=== PATIENT | female | born 1975 | race African-American/Black ===

== ENCOUNTER → 2017-01-16 | Day surgery (SDC) | payer OTHER ==
[~2017-01-16] MED LIST: Acetaminophen 500 MG TAB PO SCH; Iron Sucrose Complex 500 MG in Sodium Chloride 0.9% 250 ML 250 ML IVPB SCH
--- NOTE | 2017-01-16 19:25 | PDOC.LDHP ---
Labor and Delivery H&P Chief complaint: other (iron infusion) HPI: 41 y/o at 35w1d, patient of Dr. Bowens here for scheduled iron infusion. Denies VB, LOF, ctx, or other concerns. +FM ROS neg for HEENT, cv, pulm, gi, gu, neuro, psych, skin, musculoskeltal or constitutional symptoms other than mentioned above. OB History Details: 1 prior LTCS with 4 prior SVDs Current complications: other (anemia) Current medications: pre- vitamins Previous surgical history: low tranverse CS Allergies/Adverse Reactions: Allergies Allergy/AdvReac Type Severity Reaction Status Date / Time No Known Allergies Allergy Verified 11/29/12 11:04 Social history: none - Physical Exam Vital signs reviewed and normal: yes General: NAD, resting Lungs: nonlabored breathing Abdomen: gravid FHT: category 1 (120s, mod variability, + accels, no decels) [place] contractions every: none - Assessment 41 y/o at 35w1d now s/p for iron infusion for anemia. Procedure tolerated well. status reassuring with reactive NST. - Plan -: D/c home with precautions. Advised to keep appointments as scheduled.
== END ==
LOC: L&D/OP 14:21
PROVIDERS: ATTEND Obstetrics & Gynecology
DX: O99.013 Anemia complicating pregnancy, third trimester (principal); Z79.899 Other long term (current) drug therapy; Z3A.35 35 weeks gestation of pregnancy
CPT/HCPCS: J1756; J7050

== ENCOUNTER 2017-02-07 17:12 | Day surgery (SDC) | payer OTHER ==
[2017-02-07 17:50] VITALS: BMI 44.5
--- NOTE | 2017-02-07 23:30 | PRG ---
DATE OF SERVICE: 02/07/2017 TIME OF SERVICE: 1850 hours. PRESENTING COMPLAINT: The patient reports just concerned that she might be in labor, feels funny, a nd she slept through her appointment with Dr. Bowens last week. HISTORY OF PRESENT ILLNESS: Ms. Portillo is a 41-year-old 6, para 5 with an ANA LUISA of 02/19/ 7, placing her at 38-39 weeks' gestation. She has had 4 previous C-sections and a stat wi th her last for non-reassuring heart rate tracing in an with pulmonary hypert ension. She reports that she has been having some cramping off and on. No vaginal bleeding, no rup ture of membranes, no leaking of fluid. She slept through her appointment with Dr. Bowens this week , has an appointment on 02/10/2017 and just wanted to check her baby out and make sure she was not i n labor. OB AND IMPOSER HISTORY: As noted. O positive. Group B strep negative. Advanced maternal age. ASCUS Pap. Positive Trichomonas. PAST MEDICAL HISTORY: The patient has anemia, iron deficiency, received IV iron during this pregnan cy. PAST SURGICAL HISTORY: . ALLERGIES: None. MEDICATIONS: vitamins and IV iron. SOCIAL HISTORY: Denies tobacco, alcohol, or drug use. FAMILY HISTORY: Noncontributory. REVIEW OF SYSTEMS: Noncontributory. PHYSICAL EXAMINATION: GENERAL: Obese black female in no acute distress. VITAL SIGNS: Blood pressure 127/72, temperature 98.6, respirations 18. HEENT: Within normal limits. LUNGS: Clear to auscultation bilaterally. HEART: Regular rhythm. ABDOMEN: Soft and nontender. Fundal height 38 cm. FHTs 120s to 130s. Vulva is without lesions. Vagina without discharge. Cervix, anterior, soft, 250-2, ballots with ease, cephalic. EXTREMITIES: Without clubbing, cyanosis, or edema. heart rate monitoring was carried out for greater than 30 minutes, which revealed a baseline of 120s to 130s, positive accelerations, no dece lerations, no contractions noted. IMPRESSION: Normal third-trimester , no evidence of labor. The patient with advanced mate rnal age, grand multiparity, and prior section x1 for a trial of labor after . PLAN: The patient was reassured. She will be discharged home. She is going to keep her scheduled followup with Dr. Bowens on 02/10 with ER precautions for return for rupture of membranes, active la bor, decreased movement.
== END 2017-02-07 19:05 | disposition home or self-care (01) ==
LOC: L&D/OP 17:12
PROVIDERS: ATTEND Obstetrics & Gynecology
DX: O09.513 Supervision of elderly primigravida, third trimester (principal); O99.013 Anemia complicating pregnancy, third trimester; D50.9 Iron deficiency anemia, unspecified; O99.213 Obesity complicating pregnancy, third trimester; Z3A.39 39 weeks gestation of pregnancy; Z98.890 Other specified postprocedural states

== ENCOUNTER 2017-02-15 10:28 | Inpatient (IN) | payer OTHER ==
[2017-02-15] MEDS ORDERED: LR / Pitocin 40 units/1000 ml 1,000 ML ONE (10:48)
[2017-02-15] MEDS ORDERED: Lidocaine 1% (PF) 30 ML VIAL ONE (10:49)
[2017-02-15] MEDS ORDERED: Ondansetron HCl/PF 4 MG/2 ML Vial IVP PRN ×3 (10:58→20:56)
[2017-02-15] MEDS ORDERED: Ibuprofen 800 MG TAB PO PRN (10:58)
[2017-02-15] MEDS ORDERED: LR / Pitocin 40 units/1000 ml 1,000 ML IV PRN (10:58)
[2017-02-15] MEDS ORDERED: Lidocaine 1% (PF) 30 ML VIAL SC PRN (10:58)
[2017-02-15] MEDS ORDERED: HYDROcodone/Acetaminophen 5/325 mg Tablet PO PRN ×3 (10:58→20:56)
[2017-02-15] MEDS ORDERED: Methylergonovine 0.2 MG/ML VIAL IM PRN (10:58)
[2017-02-15] MEDS ORDERED: Lactated Ringer's 1,000 ML IV SCH (11:00)
[2017-02-15] MEDS ORDERED: Lidocaine 2% MPF 10 ML AMP (For Epidural Use) ONE (11:11)
[2017-02-15 11:30] LABS: Hematocrit 33.3 % (36.0-47.0); Mean Platelet Volume 8.8 fL (7.4-10.4); White Blood Cell (WBC) Count 9.3 thou/uL (4.8-10.8)
[2017-02-15 11:43] VITALS: BMI 44.6
[2017-02-15] MEDS ORDERED: LR 500 ML/Oxytocin 10 units 500 ML IV SCH (15:00)
[2017-02-15] MEDS ORDERED: Fentanyl 4 mcg/Marc 0.1% Cadd 100 ML ONE (16:31)
[2017-02-15] MEDS ORDERED: Promethazine HCl 25 MG/ML VIAL IM PRN (17:05)
[2017-02-15] MEDS ORDERED: Naloxone HCl 0.4 mg/ml Vial IVP PRN ×2 (17:05)
[2017-02-15] MEDS ORDERED: Acetaminophen 325 MG TAB PO PRN (17:05)
[2017-02-15] MEDS ORDERED: Lactated Ringer's 500 ML IV PRN (17:05)
[2017-02-15] MEDS ORDERED: ePHEDrine/0.9% NaCl/PF SYRINGE 50 mg/10 ml SLOW IVP PRN (17:05)
[2017-02-15] MEDS ORDERED: diphenhydrAMINE 50 MG/ML VIAL IVP PRN (17:05)
[2017-02-15] MEDS ORDERED: Eucerin (Mineral Oil/Petrolatum,White) 30 gm Jar TOP PRN (17:05)
[2017-02-15] MEDS ORDERED: Communication Order-Pharmacy FS SCH (17:15)
[2017-02-15] MEDS ORDERED: Fentanyl 4mcg/Marcaine 0.1% Cassette 100 ML EPIDURAL SCH (17:15)
[2017-02-15] MEDS: Lactated Ringer's 1,000 ML IV SCH ×2 (17:45→23:29)
[2017-02-15] MEDS ORDERED: Milk Of Magnesia 30 ML UDCUP PO PRN (20:56)
[2017-02-15] MEDS ORDERED: Lanolin Ointment 7 GM TUBE TOP PRN (20:56)
[2017-02-15] MEDS ORDERED: Bisacodyl 10 MG SUPP PR PRN (20:56)
[2017-02-15] MEDS ORDERED: LR / Pitocin 40 units/1000 ml 1,000 ML IV SCH (20:56)
[2017-02-15] MEDS ORDERED: Adacel (T-DAP) 0.5 ML VIAL IM ONE (20:56)
[2017-02-15] MEDS: Ibuprofen 800 MG TAB PO SCH (21:14)
[2017-02-15] MEDS: Docusate Calcium (SURFAK) 240 MG CAP PO SCH (21:49)
[2017-02-15] MEDS: HYDROcodone/Acetaminophen 5/325 mg Tablet PO PRN (21:51)
--- NOTE | 2017-02-16 02:24 | OP ---
DATE OF ENCOUNTER: 02/15/2017 The patient delivered a female on 02/15/2017 at 1811 hours by an uncomplicated term spontaneo us vaginal delivery. Apgars were 6 and 8, weight was 2955 grams. Infant was noted to have a tight nuchal cord and heavy meconium amniotic fluid. Placenta delivered spontaneously followed by P itocin infusion. Estimated blood loss is 200 mL. There were no lacerations. Dr. Nunez is the [facility] physician. Mother is stable in immediate . Baby was sent to NICU for transition ing due to retractions and some respiratory concerns. Her cord gas was 7.22 with base excess of neg ative 7.4.
[2017-02-16 05:43] LABS: Hematocrit 28.4 % (36.0-47.0); Mean Platelet Volume 8.6 fL (7.4-10.4); White Blood Cell (WBC) Count 17.1 thou/uL (4.8-10.8)
[2017-02-16] MEDS: Ibuprofen 800 MG TAB PO SCH ×2 (05:52→15:14)
--- NOTE | 2017-02-16 07:19 | PRG ---
DATE OF SERVICE: 02/16/2017 The patient is day 1, status post a successful vaginal after . She reports she is tolerating p.o., voiding on her own, having decreased lochia and is ambulating and has good pain control. PHYSICAL EXAMINATION: VITAL SIGNS: Blood pressure is 121/58, temperature 98.3, pulse of 83, respiratory rate of 18. GENERAL: She appears to be in no acute distress. She is alert and oriented, and cooperative and pl easant to interact with. HEENT: Normocephalic, atraumatic. ABDOMEN: Fundus is difficult to assess due to habitus. EXTREMITIES: Nontender with minimal edema. hemoglobin is 8.9, hematocrit is 28.4, platelets of 273,000. ASSESSMENT AND PLAN: The patient is day 1, status post successful , anticipate disch arge tomorrow.
[2017-02-16] MEDS: Prenatal Vitamin 1 TAB PO SCH (09:17)
[2017-02-16] MEDS: Ferrous Sulfate 325 MG TAB PO SCH ×2 (09:17→18:28)
[2017-02-16] MEDS: Docusate Calcium (SURFAK) 240 MG CAP PO SCH (09:17)
[2017-02-17] MEDS: Docusate Calcium (SURFAK) 240 MG CAP PO SCH ×2 (00:09→08:27)
[2017-02-17] MEDS: Ibuprofen 800 MG TAB PO SCH ×3 (00:09→13:48)
--- NOTE | 2017-02-17 08:00 | PDOC.PP ---
Post Progress Note Post Day #: 2 Subjective: Baby being observed for feeding. unsure of discharge. PO intake tolerated: yes Flatus: yes Ambulation: yes Vital Signs (12 hours) Temp Pulse Resp BP 02/16/17 20:35 98.2 F 86 20 110/86 Weight Weight 277 lb - Physical Examination General: NAD Cardiovascular: no m/r/g, RRR Respiratory: clear to auscultation bilaterally, non-labored breathing Abdominal: + bowel sounds, lochia, no distention, appropriately TTP Result Diagrams: 02/16/17 05:07 Additional Labs: Post Labs Hep Bs Antigen Non-Reactive S/CO (NonReactive) 02/15/17 10:54 - Assessment/Plan post partumday 2 d/c today f/u in 6 weeks desiring post BTL to be scheduled.
[2017-02-17] MEDS: Ferrous Sulfate 325 MG TAB PO SCH ×2 (08:27→16:21)
[2017-02-17] MEDS: Prenatal Vitamin 1 TAB PO SCH (08:27)
[2017-02-17] MEDS: HYDROcodone/Acetaminophen 5/325 mg Tablet PO PRN ×2 (08:29→16:21)
[2017-02-17 13:08] VITALS: BP 145/79; TEMP 98.1
== END 2017-02-17 17:00 | disposition home or self-care (01) | DRG 775 ==
LOC: L&D/OP 10:28 → L&D 10:57 → 3SW 20:31
PROVIDERS: ADMIT Obstetrics & Gynecology; ATTEND Obstetrics & Gynecology
PROC: 10E0XZZ Delivery of Products of Conception, External Approach (ICD-10-PCS; principal; 2017-02-15)
PROC: 10907ZC Drainage of Amniotic Fluid, Therapeutic from Products of Conception, Via Natural or Artificial Opening (ICD-10-PCS; 2017-02-15)
DX: O69.1XX0 Labor and delivery complicated by cord around neck, with compression, not applicable or unspecified (principal); O77.0 Labor and delivery complicated by meconium in amniotic fluid; Z37.0 Single live birth; Z3A.39 39 weeks gestation of pregnancy
CPT/HCPCS: 36415; 82805; 85027; 86780; 87340; 88307; J0595; J2001; J2405; J7120

== ENCOUNTER 2019-04-01 16:32 | Emergency (ER) | payer OTHER ==
[2019-04-01] MEDS ORDERED: Ketorolac Tromethamine 30 MG/ML VIAL ONE (17:24)
== END 2019-04-01 18:02 | disposition home or self-care (01) ==
LOC: ERS 16:32
DX: M25.461 Effusion, right knee (principal); M25.561 Pain in right knee; I10 Essential (primary) hypertension
CPT/HCPCS: 96372; 99283; J1885

== ENCOUNTER 2019-05-05 10:53 | Emergency (ER) | payer OTHER ==
[2019-05-05 11:32] LABS: #Basophils 0.1 thou/uL (0.0-0.2); #Eosinphils 0.1 thou/uL (0.0-0.7); #Lymphocytes 2.1 thou/uL (1.20-3.40); #Monocytes 0.6 thou/uL (0.11-0.59); #Neutrophils 3.3 thou/uL (1.40-6.50); %Basophils 1.1 % (0.0-1.0); %Eosinophils 1.4 % (0.0-10.0); %Lymphocytes 34.5 % (21.0-51.0); %Monocytes 9.3 % (0.0-10.0); %Neutrophils 53.8 % (42.0-75.0); Hemoglobin 11.9 g/dL (12.0-16.0); Mean Corpuscular HGB CONC 31.9 g/dL (32.0-36.0); Mean Corpuscular Hemoglobin 25.9 pg (27.0-31.0); Mean Platelet Volume 7.9 fL (7.4-10.4); Platelet Count 292 thou/uL (130-400); RBC Distribution Width 14.6 % (11.5-14.5); White Blood Cell (WBC) Count 6.1 thou/uL (4.8-10.8)
--- NOTE | 2019-05-05 11:34 | RAD ---
RADIOGRAPH CHEST 1 VIEW: DATE: 05/05/2019 HISTORY: 44-year-old female with chest pain and dyspnea FINDINGS: There are no airspace densities, pulmonary edema, pneumothorax, or cardiomegaly. The lateral costophr enic angles are sharp. IMPRESSION: No acute cardiopulmonary findings.
[2019-05-05 11:53] LABS: ALT (SGPT) 8 U/L (8-55); AST (SGOT) 12 U/L (5-34); Albumin 3.7 g/dL (3.5-5.0); Alkaline Phosphatase 91 U/L (40-110); Anion Gap 7 mmol/L (10-20); BUN (Urea Nitrogen) 10 mg/dL (7.0-18.7); Bilirubin, Total 0.3 mg/dL (0.2-1.2); Calc. Creatinine Clearance 0 mL/min (70-130); Calcium 8.7 mg/dL (7.8-10.44); Carbon Dioxide 26 mmol/L (22-29); Chloride 110 mmol/L (98-107); Estimated GFR-MDRD Greater than 90; Globulin 3.1 g/dL (2.4-3.5); Glucose 98 mg/dL (70-105); Lipase 31 U/L (8-78); Protein, Total 6.8 g/dL (6.0-8.3)
[2019-05-05] MEDS ORDERED: Ketorolac Tromethamine 60 MG/2 ML VIAL ONE (12:00)
[2019-05-05 12:12] LABS: Sodium 139 mmol/L (136-145)
== END 2019-05-05 12:59 | disposition home or self-care (01) ==
LOC: ERS 10:53
DX: R07.89 Other chest pain (principal); I10 Essential (primary) hypertension
CPT/HCPCS: 36415; 71045; 80053; 83690; 84484; 85025; 93005; 96372; J1885

== ENCOUNTER 2020-03-12 19:16 | Emergency (ER) | payer OTHER ==
[2020-03-12] MEDS ORDERED: Ketorolac Tromethamine 30 MG/ML VIAL ONE (20:30)
--- NOTE | 2020-03-12 22:09 | RAD ---
XR Lumbar Spine 2 Or 3 View History: Pain Comparison: None. Findings: 5 nonrib-bearing lumbar type vertebra. Asymmetric narrowing and sclerosis of the right SI j oint. Pubic symphysis is intact. Small bilateral acetabular osteophytes. Obturator rings are intact. Chronic appearing height loss of the T12 vertebral body with T11/T12 and T12/S1 anterior disc osteoph yte complex. No significant anterolisthesis. Minimal posterior L5/S1 disc space narrowing. Peripheral soft tissues are normal. Well-defined 4 mm spherical density projects just lateral to the right obturator ring may be extrinsi c to the patient. Impression: No acute osseous abnormality. Low-grade spondylosis.
== END 2020-03-12 22:00 | disposition home or self-care (01) ==
LOC: ERS 19:16
DX: S39.012A Strain of muscle, fascia and tendon of lower back, initial encounter (principal); S80.01XA Contusion of right knee, initial encounter; I10 Essential (primary) hypertension; V89.2XXA Person injured in unspecified motor-vehicle accident, traffic, initial encounter
CPT/HCPCS: 72100; 93005; 96372; J1885

== ENCOUNTER 2020-08-29 20:55 | Emergency (ER) | payer OTHER ==
[~2020-08-29 20:55] MED LIST changes: -Acetaminophen 500 MG TAB PO SCH; +Iopamidol-370 76% 500 ML 1 ML ONE; -Iron Sucrose Complex 500 MG in Sodium Chloride 0.9% 250 ML 250 ML IVPB SCH
[2020-08-29 21:20] LABS: Bacteria/HPF 4+ HPF (None Seen); Bilirubin Negative (Negative); Blood, Urine Negative (Negative); Clarity Turbid (Clear); Glucose, Urine (Dipstick) Normal (Negative); Ketone, Urine Trace mg/dL (Negative); Leukocyte 75 Leu/uL (Negative); Nitrite Negative (Negative); Protein, Urine (Dipstick) 50 mg/dL (Neg-Trace); Specific Gravity, Urine 1.038 (1.002-1.036); pH, Urine 5.5 (5.0-9.0)
[2020-08-29 21:21] LABS: Pregnancy Test - Urine (BHCG) Negative (Negative); Pregu Control Background? CLEAR/WHITE (CLR/WHITE); Pregu Control Bar Appear? YES (CONTROL BAR); Specific Gravity 1.038 (1.002-1.036)
[2020-08-29 23:08] LABS: #Eosinphils 0.1 thou/uL (0.0-0.7); #Lymphocytes 2.9 thou/uL (1.20-3.40); #Monocytes 0.7 thou/uL (0.11-0.59); #Neutrophils 4.9 thou/uL (1.40-6.50); %Basophils 0.1 % (0.0-1.0); %Eosinophils 1.4 % (0.0-10.0); %Lymphocytes 33.9 % (21.0-51.0); %Monocytes 7.8 % (0.0-10.0); %Neutrophils 56.9 % (42.0-75.0); Hemoglobin 11.8 g/dL (12.0-16.0); Mean Corpuscular HGB CONC 31.6 g/dL (32.0-36.0); Mean Corpuscular Hemoglobin 24.5 pg (27.0-31.0); Mean Corpuscular Volume 77.5 fL (78.0-98.0); Platelet Count 350 thou/uL (130-400); RBC Distribution Width 15.9 % (11.5-14.5); Red Blood Cell (RBC) Count 4.82 mill/uL (4.20-5.40); White Blood Cell (WBC) Count 8.7 thou/uL (4.8-10.8)
[2020-08-29 23:33] LABS: ALT (SGPT) 12 U/L (8-55); AST (SGOT) 16 U/L (5-34); Albumin 3.9 g/dL (3.5-5.0); Alkaline Phosphatase 90 U/L (40-110); Anion Gap 13 mmol/L (10-20); BUN (Urea Nitrogen) 7 mg/dL (7.0-18.7); Bilirubin, Total 0.3 mg/dL (0.2-1.2); CK (CPK) 211 U/L (29-168); Calc. Creatinine Clearance 0 mL/min (70-130); Calcium 8.5 mg/dL (7.8-10.44); Carbon Dioxide 23 mmol/L (22-29); Chloride 106 mmol/L (98-107); Globulin 3.7 g/dL (2.4-3.5); Glucose 88 mg/dL (70-105); Lipase 27 U/L (8-78); Potassium 3.6 mmol/L (3.5-5.1); Protein, Total 7.6 g/dL (6.0-8.3); Sodium 138 mmol/L (136-145)
== END 2020-08-30 00:34 | disposition home or self-care (01) ==
LOC: ERS 20:55
DX: N39.0 Urinary tract infection, site not specified (principal); D18.00 Hemangioma unspecified site; I10 Essential (primary) hypertension
CPT/HCPCS: 74177; 80053; 81003; 81015; 81025; 82550; 83690; 85025; 87077; 87086; 87186; Q9967

== ENCOUNTER 2020-12-11 14:59 | Emergency (ER) | payer OTHER ==
[2020-12-11 17:31] LABS: #Eosinphils 0.1 thou/uL (0.0-0.7); #Lymphocytes 2.6 thou/uL (1.20-3.40); #Monocytes 0.8 thou/uL (0.11-0.59); #Neutrophils 4.2 thou/uL (1.40-6.50); %Basophils 0.4 % (0.0-1.0); %Eosinophils 1.7 % (0.0-10.0); %Lymphocytes 33.9 % (21.0-51.0); %Monocytes 9.7 % (0.0-10.0); %Neutrophils 54.3 % (42.0-75.0); Hemoglobin 11.3 g/dL (12.0-16.0); Mean Corpuscular Hemoglobin 25.4 pg (27.0-31.0); Mean Corpuscular Volume 79.4 fL (78.0-98.0); Mean Platelet Volume 8.2 fL (7.4-10.4); Platelet Count 310 thou/uL (130-400); RBC Distribution Width 15.8 % (11.5-14.5); Red Blood Cell (RBC) Count 4.45 mill/uL (4.20-5.40); White Blood Cell (WBC) Count 7.7 thou/uL (4.8-10.8)
[2020-12-11] MEDS ORDERED: Pantoprazole 40 MG VIAL ONE (17:31)
[2020-12-11 17:38] LABS: BHCG - Serum Negative (NEGATIVE); Pregs Control Background? CLEAR/WHITE (CLR/WHITE); Pregs Control Bar Appear? YES (CONTROL BAR)
[2020-12-11 17:42] LABS: Prothrombin Time 13.6 sec (12.0-14.7)
[2020-12-11 17:43] LABS: PTT 33.7 sec (22.9-36.1)
[2020-12-11 18:06] LABS: ALT (SGPT) 17 U/L (8-55); AST (SGOT) 21 U/L (5-34); Albumin 3.6 g/dL (3.5-5.0); Alkaline Phosphatase 96 U/L (40-110); Anion Gap 9 mmol/L (10-20); BUN (Urea Nitrogen) 8 mg/dL (7.0-18.7); Bilirubin, Total 0.2 mg/dL (0.2-1.2); Calc. Creatinine Clearance 0 mL/min (70-130); Calcium 9.1 mg/dL (7.8-10.44); Carbon Dioxide 28 mmol/L (22-29); Chloride 108 mmol/L (98-107); Globulin 3.9 g/dL (2.4-3.5); Glucose 95 mg/dL (70-105); Lipase 34 U/L (8-78); Protein, Total 7.5 g/dL (6.0-8.3); Sodium 141 mmol/L (136-145)
[2020-12-11] MEDS ORDERED: Azithromycin 250 MG TAB ONE (18:48)
== END 2020-12-11 19:04 | disposition home or self-care (01) ==
LOC: ERS 14:59
DX: A09 Infectious gastroenteritis and colitis, unspecified (principal); I10 Essential (primary) hypertension; Z91.14 Patient's other noncompliance with medication regimen
CPT/HCPCS: 71045; 74177; 80053; 82274; 83690; 84484; 84703; 85025; 85610; 85730; 93005; 96374; C9113; Q9967

== ENCOUNTER 2023-02-21 20:29 | Emergency (ER) | payer OTHER, SELFPAY ==
[2023-02-21 23:52] LABS: BHCG - Serum Negative (NEGATIVE); Pregs Control Background? CLEAR/WHITE (CLR/WHITE); Pregs Control Bar Appear? YES (CONTROL BAR)
[2023-02-22] MEDS ORDERED: Ketorolac Tromethamine 30 MG/ML VIAL ONE (00:33)
[2023-02-22] MEDS ORDERED: Orphenadrine Citrate 60 MG/2 ML VIAL ONE (00:33)
== END 2023-02-22 01:23 | disposition home or self-care (01) ==
LOC: ERS 20:29
DX: M54.50 Low back pain, unspecified (principal); M25.551 Pain in right hip; V89.2XXA Person injured in unspecified motor-vehicle accident, traffic, initial encounter
CPT/HCPCS: 36415; 72131; 84703; 96372; J1885; J2360

== ENCOUNTER 2023-07-03 22:38 | Emergency (ER) | payer OTHER ==
[2023-07-04 00:12] LABS: Bacteria/HPF None Seen HPF (None Seen); Bilirubin Negative (Negative); Blood, Urine Trace (Negative); CAUTI Indications for Culture Dysuria,urgency,freq; Clarity Clear (Clear); Glucose, Urine (Dipstick) Greater than 1000 mg/dL (Negative); Ketone, Urine 150 mg/dL (Negative); Leukocyte 25 Leu/uL (Negative); Nitrite Negative (Negative); Protein, Urine (Dipstick) Negative (Neg-Trace); Specific Gravity, Urine 1.037 (1.002-1.036); Squamous Epithelial 0-3 HPF (0-3); Urobilinogen Normal mg/dL (Less than 2)
[2023-07-04 00:13] LABS: Urine Culture Reflex Yes Yes
[2023-07-04] MEDS ORDERED: hydrOXYzine 25 MG TAB ONE (01:29)
[2023-07-04] MEDS ORDERED: Acetaminophen 500 MG TAB ONE (01:29)
[2023-07-04] MEDS ORDERED: Cephalexin 250 MG CAP ONE (01:29)
== END 2023-07-04 02:02 | disposition home or self-care (01) ==
LOC: ERS 22:38
DX: N75.0 Cyst of Bartholin's gland (principal); N39.0 Urinary tract infection, site not specified; L73.9 Follicular disorder, unspecified; E11.9 Type 2 diabetes mellitus without complications; I10 Essential (primary) hypertension
CPT/HCPCS: 81001; 87086; 99282

== ENCOUNTER 2025-03-08 13:10 | Emergency (ER) | payer OTHER ==
[2025-03-08 15:29] LABS: Bacteria/HPF None Seen HPF (None Seen); CAUTI Indications for Culture Dysuria,urgency,freq; Glucose, Urine (Dipstick) Greater than 1000 mg/dL (Negative); Leukocyte 75 Leu/uL (Negative); Protein, Urine (Dipstick) Negative (Neg-Trace); Specific Gravity, Urine 1.038 (1.002-1.036); Yeast-Budding 1+ HPF (None Seen)
[2025-03-08 15:37] LABS: Urine Culture Reflex No No
[2025-03-08 15:49] LABS: #Basophils 0.05 10x3/uL (0.0-0.2); #Eosinophils 0.05 10x3/uL (0.0-0.7); #Monocytes 0.56 10x3/uL (0.11-0.59); #Neutrophils 4.56 10x3/uL (1.40-6.50); %Basophils 0.7 % (0.0-1.0); %Eosinophils 0.7 % (0.0-10.0); %Lymphocytes 25.4 % (21.0-51.0); %Monocytes 8.0 % (0.0-10.0); %Neutrophils 65.1 % (42.0-75.0); Hematocrit 43.7 % (36.0-47.0); Hemoglobin 13.7 g/dL (12.0-16.0); Mean Corpuscular Hemoglobin 25.7 pg (27.0-31.0); Mean Corpuscular Volume 81.8 fL (78.0-98.0); Platelet Count 228 10x3/uL (130-400); Red Blood Cell (RBC) Count 5.34 mill/uL (4.20-5.40); White Blood Cell (WBC) Count 7.01 10x3/uL (4.8-10.8)
[2025-03-08 15:55] LABS: Actual Bicarbonate (HCO3v) 25.0 mEq/L (22-28); Analyzer IN Cardio ER; Base Excess -1.9 mEq/L (-2.0 to +3.0); Calcium, Ionized (venous) 1.17 mmol/L (1.16-1.32); Chloride (VBG) 101 mmol/L (98-106); Hematocrit-VBG 45 % (36.0-47.0); Hemoglobin (Hb) 15.3 g/dL (11.7-16.0); Potassium (VBG) 3.59 mmol/L (3.70-5.30); Sodium 139 mmol/L (133-146)
[2025-03-08 16:19] LABS: ALT (SGPT) 8 U/L (Less than 34); AST (SGOT) 17 U/L (11-34); Albumin 3.5 g/dL (3.1-4.5); Alkaline Phosphatase 128 U/L (40-110); Anion Gap 14 mmol/L (10-20); BUN (Urea Nitrogen) 10 mg/dL (9.8-20.1); Bilirubin, Total 0.2 mg/dL (0.3-1.2); Calc. Creatinine Clearance 0 mL/min (70-130); Calcium 9.3 mg/dL (7.8-10.44); Carbon Dioxide 25 mmol/L (22-29); Chloride 102 mmol/L (98-107); Globulin 4.1 g/dL (2.4-3.5); Glucose 519 mg/dL (70-105); Potassium 3.6 mmol/L (3.5-5.1); Sodium 137 mmol/L (136-145)
[2025-03-09 00:03] LABS: Chlamydia by PCR, Vaginal Swab Not Detected (NotDetected); GC by PCR, Vaginal Swab Not Detected (NotDetected)
== END 2025-03-08 16:55 | disposition home or self-care (01) ==
LOC: ERS 13:10
DX: E11.65 Type 2 diabetes mellitus with hyperglycemia (principal); B37.31 Acute candidiasis of vulva and vagina; L73.9 Follicular disorder, unspecified; I10 Essential (primary) hypertension
CPT/HCPCS: 36416; 80053; 81001; 82010; 82805; 85025; 87480; 87491; 87510; 87591; 87660; 99284; J1815